=== PATIENT | female | born 1960 | race Two or more races ===

== ENCOUNTER 2017-02-16 09:31 | Inpatient (IN) | payer BC ==
[~2017-02-16] VITALS: Ht 157.5 cm; Wt 70.8 kg
[~2017-02-16 09:31] MED LIST: ALOG1TAB2 PO; ATOR10TA PO; LISI2.5T47 PO; METF-370 PO
[2017-02-16 10:17] LABS: Basophils # (auto) 0 uL; Basophils % (auto) 0.1 % (0.0-2.0); Eosinophils # (auto) 0.1 uL; Eosinophils % (auto) 0.9 % (0.0-7.0); Hemoglobin 13.4 g/dL (12.2-16.2); Lymphocytes # (auto) 1.6 uL; Lymphocytes % (auto) 23.8 % (10.0-50.0); Mean Corpuscular Hgb Conc. 33.5 g/dL (32.0-36.0); Mean Corpuscular Volume 86.6 fL (80.0-100.0); Mean Platelet Volume 7.3 fL (6.9-10.8); Monocytes # (auto) 0.5 uL; Monocytes % (auto) 6.9 % (0.0-12.0); Neutrophils # (auto) 4.5 uL; Neutrophils % (auto) 68.3 % (37.0-80.0); Nucleated Red Blood Cells % 0.1 %; Platelet Count (auto) 270 10^3/uL (140-450); Red Cell Distribution Width 14.1 % (11.8-14.3); White Blood Cell 6.5 10^3/uL (4.4-10.8)
[2017-02-16 10:31] LABS: Albumin 3.6 g/dL (3.4-5.0); Alkaline Phosphatase 78 U/L (45-117); Anion Gap 8 (5-15); Aspartate Aminotransferase 18 U/L (15-37); BUN/Creatinine Ratio 24.4; Bilirubin, Total 0.5 mg/dL (0.2-1.0); Blood Urea Nitrogen 19 mg/dL (7-18); Calcium 8.7 mg/dL (8.5-10.1); Carbon Dioxide 24 mmol/L (21-32); Chloride 108 mmol/L (98-107); GFR African American 99 mL/min; GFR Non-African American 82 mL/min; Glucose 197 mg/dL (74-106); Magnesium 2.1 mg/dL (1.6-2.6); Potassium 3.6 mmol/L (3.5-5.1); Sodium 140 mmol/L (136-145); Total Protein 7.3 g/dL (6.4-8.2)
[2017-02-16] MEDS ORDERED: LORazepam 2MG/ML-1ML VIAL IV ONE (10:45)
[2017-02-16] MEDS ORDERED: ASPirin 81 mg TAB PO ONE (11:30)
[2017-02-16] MEDS ORDERED: NITROGLYCERIN 0.4 MG SL TAB SL ONE (11:30)
[2017-02-16] MEDS ORDERED: HYDROcodone-ACET 5/325MG TAB PO PRN (12:00)
[2017-02-16] MEDS ORDERED: ONDANSETRON HCL 4 MG/2 ML VIAL IV PRN (12:00)
[2017-02-16] MEDS ORDERED: MORPHINE SULF INJ 2 MG/ML SYRINGE 1ML IV PRN ×2 (12:00)
[2017-02-16] MEDS ORDERED: NITROGLYCERIN 0.4 MG SL TAB SL PRN (12:00)
[2017-02-16] MEDS ORDERED: DEXTROSE (50%) 50ML SYRG IV PRN (12:00)
[2017-02-16 12:04] VITALS: BP 118/71
[2017-02-16 12:22] LABS: Cholesterol 153 mg/dL (< 200); HDL Cholesterol 53 mg/dL (40-59); LDL Cholesterol 101 mg/dL (< 100); Triglycerides 59 mg/dL (< 150)
[2017-02-16] MEDS ORDERED: ACCU-CHEK COMFORT CURVE STRIP VI SCH (17:00)
[2017-02-16] MEDS ORDERED: InsuLIN REG 1unit/0.01ml Soln (100units/ml) SC SCH (17:00)
[2017-02-16] MEDS ORDERED: ATORVASTATIN 20 MG TAB PO SCH (22:00)
[2017-02-16] MEDS ORDERED: METOPROLOL TARTRATE 25 MG TAB PO SCH (22:00)
[2017-02-17] MEDS ORDERED: ASPirin 81 mg TAB PO SCH (10:00)
[2017-02-17] MEDS ORDERED: ENALAPRIL MALEATE 2.5 MG TAB PO SCH (10:00)
== END 2017-02-16 13:25 | disposition home or self-care (01) | DRG 313 ==
LOC: ER 09:31 → TELE 09:32
PROVIDERS: ADMIT Internal Medicine; ATTEND Internal Medicine
DX: R07.89 Other chest pain (principal); E11.65 Type 2 diabetes mellitus with hyperglycemia; I10 Essential (primary) hypertension; I48.0 Paroxysmal atrial fibrillation; E78.5 Hyperlipidemia, unspecified; E78.00 Pure hypercholesterolemia, unspecified; K44.9 Diaphragmatic hernia without obstruction or gangrene; Z79.84 Long term (current) use of oral hypoglycemic drugs; N64.4 Mastodynia; Z79.899 Other long term (current) drug therapy; Z82.49 Family history of ischemic heart disease and other diseases of the circulatory system; Z83.3 Family history of diabetes mellitus; Z80.59 Family history of malignant neoplasm of other urinary tract organ
CPT/HCPCS: 36415; 71010; 80053; 80061; 83036; 83735; 84484; 85025; 85379; 93005; 96374

== ENCOUNTER 2024-11-16 01:15 | Inpatient (IN) | payer BC, OTHER ==
[~2024-11-16] VITALS: Ht 157.5 cm; Wt 68.6 kg
--- NOTE | 2024-11-16 01:37 | ECG ---
[facility] Test Date: 2024-11-16 Test Time: 01:19:26 Pat Name: LICO TRAN Department: ED Room: [address] [place] [address] Gender: F Legal Editor: BETTY : 1960 Requested By: CHANG TOVAR Order Number: [id number] Reading MD: Sky Kasper Measurements Intervals [place] Rate: 122 P: 0 [place]: 0 QRS: 46 QRSD: 124 T: -21 QT: 338 QTc: 482 Interpretive Statements Atrial fibrillation Nonspecific intraventricular conduction delay Repol abnrm suggests ischemia, diffuse leads ST depression V1-V3, suggest recording posterior leads Baseline wander in lead(s) V6 Electronically Signed On 11-18-2024 9:52:23 PDT by Sky Kasper Please click the below link to view image of tracing.
[2024-11-16 01:50] LABS: Hematocrit 42.5 % (36.0-46.0); Hemoglobin 14.3 g/dL (12.2-16.2); Mean Corpuscular Hemoglobin 28.9 pg (28.0-32.0); Mean Corpuscular Volume 85.9 fL (80.0-100.0); Nucleated Red Blood Cells % 0.0 %
[2024-11-16 01:53] LABS: Urine Protein, UAD Negative (Negative)
[2024-11-16] MEDS: SODIUM CHLORIDE 0.9% 1,000 ML IV ONE (01:55)
[2024-11-16 02:01] LABS: Anion Gap 15 (5-15); Chloride 105 mmol/L (98-107); Potassium 3.5 mmol/L (3.5-5.1); Sodium 140 mmol/L (136-145)
[2024-11-16 02:02] VITALS: PULSE 117; RESP 14; O2SAT 98
[2024-11-16 02:02] LABS: Calcium 9.9 mg/dL (8.7-10.4)
[2024-11-16 02:07] LABS: BUN/Creatinine Ratio 19.8 (10.0-20.0); Blood Urea Nitrogen 18 mg/dL (9-23)
[2024-11-16 02:14] LABS: Carbon Dioxide 20 mmol/L (20-31); Glucose 148 mg/dL (74-106)
--- NOTE | 2024-11-16 02:21 | ED.PDOC ---
History of Present Illness HPI Comments 64 y/o Honduran speaking F presents with c/o nonradiating, left sided chest pain. Patient reports on pain, suddenly, beginning, last night, while sleeping, at around 2300. Pain is pressure-like in quality. Denies any shortness of breath, nausea, vomiting, fever, chills, or further associated symptoms. Significant history of Paroxysmal AFib, DM, HLD, and HTN. Chief Complaint: Chest Pain Time Seen by MD: 01:10 Primary Care Provider: DINAH AT [facility] Reviewed Notes: Nurses Notes, Medications, Allergies Allergies: Coded Allergies: NO KNOWN ALLERGIES (Unverified , 03/06/16) Home Meds Reported Medications Metformin Hydrochloride (Metformin Hcl) 500 Mg Tab, 500 MG PO DAILY, TAB 03/06/16 Alogliptin Benzoate (Alogliptin) 25 Mg Tab, 25 MG PO DAILY, TAB 03/06/16 Atorvastatin Calcium (Lipitor) 10 Mg Tab, 10 MG PO DAILY, TAB 03/06/16 Lisinopril (Lisinopril) 2.5 Mg Tab, 5 MG PO DAILY, TAB 03/06/16 Information Source: Patient Mode of Arrival: Ambulatory Severity: Moderate Timing: Hours Duration: Since onset Prehospital treatment: None Past Medical History PAST MEDICAL HISTORY: AFIB (Paroxysmal - on Eliquis ), DM, High Lipids, HTN Surgical History: Denies all surgeries ROAD MAKER History: No Pertinent ROAD MAKER History Family History Family History: Unobtainable Social History Smoker: Non-Smoker Alcohol: Denies ETOH Use Drugs: Denies Drug Use Lives In: Home All Other Systems: Reviewed and Negative Physical Exam General Appearance: No Apparent Distress, Normal HEENT: Normal ENT Inspection, Pharynx Normal, TMs Normal Neck: Full Range of Motion, Non-Tender, Normal, Normal Inspection Respiratory: Chest Non-Tender, Lungs Clear, No Accessory Muscle Use, No Respiratory Distress, Normal Breath Sounds Cardiovascular: No Edema, No JVD, No Murmur, No Gallop, Normal Peripheral Pulses, Regular Rate/Rhythm Breast Exam: Deferred Gastrointestinal: No Organomegaly, Non Tender, No Pulsatile Mass, Normal Bowel Sounds, Soft Genitalia: Deferred Pelvic: Deferred Rectal: Deferred Extremities: No calf tenderness, Normal capillary refill, Normal inspection, Normal range of motion, Non-tender, No pedal edema Musculoskeletal : Apperance: Normal Neurologic: Alert, dancing teacher II-XII nml as Tested, No Motor Deficits, Normal Affect, Normal Mood, No Sensory Deficits Cerebellar Function: Normal Reflexes: Normal Skin: Dry, Normal Color, Warm Lymphatic: No Adenopathy Was a procedure done? Was a procedure done?: No EKG EKG : Pulse Rate (adult): 122 [place]: Normal Cardiac Rhythm: Afib Block: None Hypertrophy: None ST: Normal Differential Dx Considerations may include: NH, PE, ACS, URI, PNA, angina, anxiety, costochondritis, pericarditis, viral syndrome, gastritis, among others X-Ray, Labs, Meds, VS Vital Signs Date Time Temp Pulse Resp B/P (MAP) Pulse Ox O2 Delivery O2 Flow Rate FiO2 11/16/24 02:22 117 11/16/24 02:21 122 11/16/24 02:02 117 14 98 Room Air* 0 21 11/16/24 02:02 98.4 117 14 129/84 (99) 98 98.4 11/16/24 01:25 97.5 136 18 107/67 (80) 95 97.5 11/16/24 01:19 122 Lab Test 11/16/24 02:11 11/16/24 01:38 11/16/24 01:18 Range/Units Troponin I High Sensitivity 5 3 L </=34 ng/L Urine Color Colorless Yellow Urine Clarity Clear Clear Urine pH 7.5 5.0-9.0 Urine Specific [place] 1.004 1.001-1.035 Urine Protein Negative Negative Urine Ketones Negative Negative Urine Blood Negative Negative /uL Urine Nitrite Negative Negative Urine Bilirubin Negative Negative Urine Urobilinogen Normal Negative mg/dL Urine Leukocyte Esterase Negative Negative /uL Urine RBC 1 0 - 4 /hpf Urine Microscopic WBC < 1 0-5 /HPF Urine Squamous Epithelial Cells None seen <5 /hpf Urine Bacteria None seen None Seen /hpf Urine Glucose 3+ H Normal mg/dL White Blood Count 7.6 4.4-10.8 10^3/uL Red Blood Count 4.95 4.0-5.20 10^6/uL Hemoglobin 14.3 12.2-16.2 g/dL Hematocrit 42.5 36.0-46.0 % Mean Corpuscular Volume 85.9 80.0-100.0 fL Mean Corpuscular Hemoglobin 28.9 28.0-32.0 pg Mean Corpuscular Hemoglobin Concent 33.7 32.0-36.0 g/dL Red Cell Distribution Width 13.9 11.8-14.3 % Platelet Count 267 140-450 10^3/uL Mean Platelet Volume 8.0 6.9-10.8 fL Neutrophils (%) (Auto) 45.6 37.0-80.0 % Lymphocytes (%) (Auto) 45.0 10.0-50.0 % Monocytes (%) (Auto) 8.0 0.0-12.0 % Eosinophils (%) (Auto) 1.1 0.0-7.0 % Basophils (%) (Auto) 0.3 0.0-2.0 % Neutrophils # (Auto) 3.5 1.6-8.6 10 ^3/uL Lymphocytes # (Auto) 3.4 0.4-5.4 10 ^3/uL Monocytes # (Auto) 0.6 0-1.3 10 ^3/uL Eosinophils # (Auto) 0.1 0-0.8 10 ^3/uL Basophils # (Auto) 0 0-0.2 10 ^3/uL Nucleated Red Blood Cells 0.0 % Sodium Level 140 136-145 mmol/L Potassium Level 3.5 3.5-5.1 mmol/L Chloride Level 105 98-107 mmol/L Carbon Dioxide Level 20 20-31 mmol/L Anion Gap 15 5-15 Blood Urea Nitrogen 18 9-23 mg/dL Creatinine 0.91 0.550-1.02 mg/dL Glomerular Filtration Rate Calc 71 >90 mL/min BUN/Creatinine Ratio 19.8 10.0-20.0 Serum Glucose 148 H 74-106 mg/dL Calcium Level 9.9 8.7-10.4 mg/dL Current Medications Medications (Trade) Dose Ordered Sig/Halina Route Start Time Stop Time Status Last Admin Sodium Chloride 1,000 ml @ 1,000 mls/hr Q1H ONCE IV 11/16/24 01:45 11/16/24 02:44 DC 11/16/24 01:55 Time of 1ST Reevaluation: 03:37 Reevaluation 1ST: Improved Patient Education/Counseling: Diagnosis, Treatment Family Education/Counseling: No Family Present Additional Information Previous visits reviewed: March 06, 2016 and February 16, 2017 encounter for chest pain, new onset AFib, and chest pain, respectively. The following tests were ordered, and results were reviewed by me: UA, CBC, BMP, EKG, troponin Additional Information was gathered from interviewing the following independent historians: N/A I reviewed and agreed with the following test results read by other providers: N/A I discussed treatment and results with medical personnel and: patient SEPSIS Sepsis Screen Date sepsis recognized/suspect: Nov 16, 2024 Time Sepsis recognized/suspect: 116 Recent Procedure: No On Antibiotic Therapy: No Respiratory Rate >20: No Heart Rate >90: Yes Temp<36 C (96.8 F) or >38.3 C: No SBP <90 or MAP <65 mmHG: No New Acute Mental Status Change: No Is the patient on CPAP, BIPAP,: No Physician Orders Troponin-I Hs (11/16/24 04:16) Electrocardigram (11/16/24 02:16) Electrocardigram (11/16/24 04:16) Chest Portable (11/16/24 02:42) Amiodarone 150 Mg Bolus (11/16/24 03:45) Amiodarone Drip 1 Mg/Min X 6hr (11/16/24 03:45) Amiodarone Drip 0.5 Mg/Min (11/16/24 09:45) Vital Signs Date Time Temp Pulse Resp B/P (MAP) Pulse Ox O2 Delivery O2 Flow Rate FiO2 11/16/24 02:22 117 11/16/24 02:21 122 11/16/24 02:02 117 14 98 Room Air* 0 21 11/16/24 02:02 98.4 117 14 129/84 (99) 98 98.4 11/16/24 01:25 97.5 136 18 107/67 (80) 95 97.5 11/16/24 01:19 122 Laboratory Tests Test 11/16/24 01:18 White Blood Count 7.6 10^3/uL (4.4-10.8) Medications Medications Dose Ordered Sig/Halina Route Start Time Stop Time Status Last Admin Dose Admin Sodium Chloride 1,000 ml @ 1,000 mls/hr Q1H ONCE IV 11/16/24 01:45 11/16/24 02:44 DC 11/16/24 01:55 Departure 1 Departure Time of Disposition: 03:37 (Patient presented with chest pain that was concerning for possible STEMI, ACS, PE, Pneumonia, Muscle Strain, COPD, Dissection. Data: 1. I ordered and reviewed the result of at least 3 labs including a CBC, BMP, and Troponin. 2. I independently interpreted the following tests: EKG which shows AFib with RVR and Chest X-ray which shows benign chest.Risk:This patient has a high risk of morbidity due to further diagnostic testing or treatment and may suffer from an acute cardiac or respiratory disorder. Workup reveals AFib with RVR and patient should be admitted for further workup and possible expert consultation. ) Impression: Primary Impression: Atrial fibrillation with RVR Additional Impression: Acute chest pain Disposition: ADMITTED INPATIENT Admit to: Med Surg Condition: Serious Critical Care Note Critical Care Time?: Yes Critical care comment: Acute chest pain Authorized and Performed by: Chang Kline MD Total critical care time: Approximately 38 minutes Due to a high probability of clinically significant, life threatening deterioration, the patient required my highest level of preparedness to intervene emergently and I personally spent this critical care time directly and personally managing the patient. This critical care time included obtaining a history; examining the patient; pulse oximetry; ordering and review of studies; arranging urgent treatment with development of a management plan; evaluation of patient's response to treatment; frequent reassessment; and, discussions with other providers. This critical care time was performed to assess and manage the high probability of imminent, life-threatening deterioration that could result in multi-organ failure. It was exclusive of separately billable procedures and treating other patients and teaching time. Please see my other sections and the rest of the note for further information on patient assessment and treatment. Stability Stability form required: No Heart Score Heart Score: Heart Score Response (Comments) Value History Moderate Suspicious 1 EKG Repolarization Disturb 1 Age 45-64 1 Risk Factors >3 or Hx ASHD 2 Troponin Normal limit 0 Total 5 I personally scribed for CHANG KLINE MD ([email or web address]) on 11/16/24 at 02:21. Electronically submitted by Ace Keating ([email or web address]). CHANG KLINE MD Nov 16, 2024 02:21
--- NOTE | 2024-11-16 03:11 | DVH ---
CHEST RADIOGRAPH Indication: palpitations Technique: Single frontal view of the chest was obtained COMPARISON: None FINDINGS: Lines and Tubes: None Lungs: Clear Pleura: No effusion. No pneumothorax. Cardiomediastinal contours: Unremarkable. Atherosclerotic vascular calcifications. Bones: Unremarkable IMPRESSION: 1. No acute disease.
--- NOTE | 2024-11-16 04:42 | DVHHP2 ---
History of Present Illness Reason for Visit: Palpitations History of Present Illness 64-year-old female presents for evaluation of palpitations. Patient endorses a one day history of left-sided chest pressure with associated palpitations. She also reports mild shortness for breath and dizziness. Currently denies any symptoms. Patient was noted to be in AFib with RVR and was placed on amnio drip on arrival. Currently rate is controlled in the 70s. Past Medical History AFib, diabetes mellitus, hypertension, dyslipidemia Past Surgical History Denies Family History Noncontributory Smoke: No ALCOHOL: none Drugs: None Lives: with Family Review of Systems Review of Systems Review of systems are currently negative otherwise addressed in HPI. Allergies: Coded Allergies: NO KNOWN ALLERGIES (Unverified , 03/06/16) Exam Vital Signs Vital Signs Date Time Temp Pulse Resp B/P (MAP) Pulse Ox O2 Delivery O2 Flow Rate FiO2 11/16/24 04:11 71 11/16/24 02:02 14 98 Room Air* 0 21 11/16/24 02:02 98.4 129/84 (99) 98.4 Exam Gen: 64-year-old female in no apparent distress. Skin: Warm, dry, normal color and texture, no rash. HEENT: Normocephalic atraumatic, mucous membranes moist and pink. Neck: Cervical and supraclavicular nodes normal without enlargement, trachea is midline, thyroid gland is normal without masses. Pulmonary: Clear to auscultation and percussion bilaterally. Cardiac: Regular rate and rhythm. No murmur Abdomen: Soft, nontender, nondistended, bowel sounds present all 4 quadrants, no guarding, no rigidity, no organomegaly. Extremities: No cyanosis, clubbing, no edema Neuro: Cranial nerves II through XII grossly intact, normal affect and speech, n o focal motor deficits. Labs/Xrays ORDERING PHYSICIAN: CHANG TOVAR MD PROCEDURE(s): CXRP - CHEST PORTABLE REASON: palpitations ORDER NUMBER(s): [id number], ACCESSION NUMBER(s): [id number] CHEST RADIOGRAPH Indication: palpitations Technique: Single frontal view of the chest was obtained COMPARISON: None FINDINGS: Lines and Tubes: None Lungs: Clear Pleura: No effusion. No pneumothorax. Cardiomediastinal contours: Unremarkable. Atherosclerotic vascular calcifications. Bones: Unremarkable IMPRESSION: 1. No acute disease. Labs Test 11/16/24 04:15 11/16/24 01:38 11/16/24 01:18 Range/Units Urine Color Colorless Yellow Urine Clarity Clear Clear Urine pH 7.5 5.0-9.0 Urine Specific [place] 1.004 1.001-1.035 Urine Protein Negative Negative Urine Ketones Negative Negative Urine Blood Negative Negative /uL Urine Nitrite Negative Negative Urine Bilirubin Negative Negative Urine Urobilinogen Normal Negative mg/dL Urine Leukocyte Esterase Negative Negative /uL Urine RBC 1 0 - 4 /hpf Urine Microscopic WBC < 1 0-5 /HPF Urine Squamous Epithelial Cells None seen <5 /hpf Urine Bacteria None seen None Seen /hpf Urine Glucose 3+ H Normal mg/dL White Blood Count 7.6 4.4-10.8 10^3/uL Red Blood Count 4.95 4.0-5.20 10^6/uL Hemoglobin 14.3 12.2-16.2 g/dL Hematocrit 42.5 36.0-46.0 % Mean Corpuscular Volume 85.9 80.0-100.0 fL Mean Corpuscular Hemoglobin 28.9 28.0-32.0 pg Mean Corpuscular Hemoglobin Concent 33.7 32.0-36.0 g/dL Red Cell Distribution Width 13.9 11.8-14.3 % Platelet Count 267 140-450 10^3/uL Mean Platelet Volume 8.0 6.9-10.8 fL Neutrophils (%) (Auto) 45.6 37.0-80.0 % Lymphocytes (%) (Auto) 45.0 10.0-50.0 % Monocytes (%) (Auto) 8.0 0.0-12.0 % Eosinophils (%) (Auto) 1.1 0.0-7.0 % Basophils (%) (Auto) 0.3 0.0-2.0 % Neutrophils # (Auto) 3.5 1.6-8.6 10 ^3/uL Lymphocytes # (Auto) 3.4 0.4-5.4 10 ^3/uL Monocytes # (Auto) 0.6 0-1.3 10 ^3/uL Eosinophils # (Auto) 0.1 0-0.8 10 ^3/uL Basophils # (Auto) 0 0-0.2 10 ^3/uL Nucleated Red Blood Cells 0.0 % Sodium Level 140 136-145 mmol/L Potassium Level 3.5 3.5-5.1 mmol/L Chloride Level 105 98-107 mmol/L Carbon Dioxide Level 20 20-31 mmol/L Anion Gap 15 5-15 Blood Urea Nitrogen 18 9-23 mg/dL Creatinine 0.91 0.550-1.02 mg/dL Glomerular Filtration Rate Calc 71 >90 mL/min BUN/Creatinine Ratio 19.8 10.0-20.0 Serum Glucose 148 H 74-106 mg/dL Calcium Level 9.9 8.7-10.4 mg/dL Assessment/Plan Assessment/Plan Assessment AFib with RVR Diabetes mellitus Hypertension Plan Admit the patient to telemetry to the hospitalist Continue amiodarone drip Cardiology consult Echocardiogram pending Resume home medications Continue treatment per orders. Plan discussed with: Patient My Orders Orders - JOHNNY MA Procedure Category Date Status Time * Cardiology Consult CONS 11/16/24 Transmitted 04:32 Apixaban (Eliquis) PHA 11/16/24 Logged 10:00 Levothyroxine Tablet PHA 11/16/24 Logged (Synthroid Tablet) 06:00 Metoprolol Tartrate PHA 11/16/24 Transmitted Tablet (Lopressor Ta 10:00 Atorvastatin (Lipitor) PHA 11/16/24 Transmitted 22:00 Consistent DIET 11/16/24 Transmitted Carb(Ccho)Diabetes Breakfast Thyroid Stimulating LAB 11/16/24 Transmitted Hormone 04:32 Lipid Panel LAB 11/16/24 Transmitted 04:32 Glucose Blood PHA 11/16/24 Transmitted (Accu-Chek Comfort 06:00 Mild Sliding Scale PHA 11/16/24 Transmitted Npo - Q6hr 06:00 Dextrose 50% Syringe PHA 11/16/24 Transmitted 04:45 Admit ADMIT 11/16/24 Transmitted 04:32 Ondansetron Hcl PHA 11/16/24 Transmitted (Zofran) 04:45 Cardiac DIET 11/16/24 Transmitted Diet-2gna,Lofat,Lochol Breakfast Echo 2d Mode Cardiac US 11/16/24 Transmitted DOP 04:32 Condition: Fair KYLE 11/16/24 Transmitted 04:32 Acetaminophen Tablet PHA 11/16/24 Transmitted (Tylenol Tablet) 04:45 Bedrest With Bathroom KYLE 11/16/24 Transmitted Privileg 04:32 Nitroglycerin PHA 11/16/24 Transmitted Sublingual (Ntrostat 04:45 Morphine Sulfate PHA 11/16/24 Transmitted Injection 04:45 Stat Ekg For Chest [facility] 11/16/24 Transmitted Pain 04:32 Notify Md Of Changes [facility] 11/16/24 Transmitted From Base 04:32 Surg Tech For [facility] 11/16/24 Transmitted 24 Hours 04:32 Emergency Dysrhythmia [facility] 11/16/24 Transmitted Protocol 04:32 Rhythm Strips Once [facility] 11/16/24 Transmitted Every Shift 04:32 Oxygen By Nasal RT 11/16/24 Transmitted Cannula 04:32 Basic Metabolic Panel LAB 11/17/24 Verified 04:00 Date of Service: Nov 16, 2024 Billing Provider: JOHNNY MA Common Visit Codes: [id number] INP/OBS CARE (HIGH) JOHNNY MA Nov 16, 2024 04:42
[2024-11-16] MEDS ORDERED: DEXTROSE (50%) 50ML SYRG IV PRN (04:45)
[2024-11-16] MEDS ORDERED: MORPHINE SULFATE INJ 2 MG/ml SYRG IV PRN (04:45)
[2024-11-16] MEDS ORDERED: ACETAMINOPHEN 325 MG TAB PO PRN (04:45)
[2024-11-16] MEDS ORDERED: NITROGLYCERIN 0.4 MG SL TAB SL PRN (04:45)
[2024-11-16] MEDS ORDERED: ONDANSETRON HCL 4 MG/2 ML VIAL IV PRN (04:45)
[2024-11-16 05:24] LABS: Triglycerides 91 mg/dL (< 150)
[2024-11-16 05:26] LABS: Cholesterol 127 mg/dL (< 200); HDL Cholesterol 41 mg/dL (40-59)
[2024-11-16] MEDS: AMIODARONE BOLUS KIT 100 ML IV ONE (05:34)
[2024-11-16] MEDS: AMIODARONE 360mg/200mL PREMIX 200 ML IV ONE (05:59)
[2024-11-16] MEDS: InsuLIN REG 1unit/0.01ml Soln (100units/ml) SC SCH (06:00)
[2024-11-16] MEDS: ACCU-CHEK COMFORT CURVE STRIP VI SCH (06:09)
--- NOTE | 2024-11-16 06:15 | ECG ---
[facility] Test Date: 2024-11-16 Test Time: 02:22:58 Pat Name: LICO TRAN Department: ED Room: [address] [place] [address] Gender: F Automation Test Developer: DC : 1960 Requested By: CHANG TOVAR Order Number: [id number] Reading MD: Sky Kasper Measurements Intervals [place] Rate: 117 P: 0 MT: 0 QRS: 39 QRSD: 84 T: 31 QT: 349 QTc: 487 Interpretive Statements Atrial fibrillation Low voltage, precordial leads Abnormal R-wave progression, early transition Borderline prolonged QT interval Electronically Signed On 11-18-2024 9:52:42 PDT by Sky Kasper Please click the below link to view image of tracing.
--- NOTE | 2024-11-16 06:15 | ECG ---
[facility] Test Date: 2024-11-16 Test Time: 04:11:51 Pat Name: LICO TRAN Department: ED Room: [address] [place] [address] Gender: F Power Checker: DC : 1960 Requested By: CHANG TOVAR Order Number: [id number] Reading MD: Sky Kasper Measurements Intervals [place] Rate: 71 P: 0 [place]: 0 QRS: 42 QRSD: 87 T: 31 QT: 398 QTc: 433 Interpretive Statements Atrial fibrillation Low voltage, precordial leads Abnormal R-wave progression, early transition Electronically Signed On 11-18-2024 9:54:17 PDT by Sky Kasper Please click the below link to view image of tracing.
[2024-11-16] MEDS: LEVOTHYROXINE SODIUM 88 MCG TAB PO SCH (06:19)
[2024-11-16] MEDS: APIXABAN 5 MG TAB PO SCH (09:35)
[2024-11-16] MEDS: METOPROLOL TARTRATE 25 MG TAB PO SCH (09:36)
[2024-11-16] MEDS: AMIODARONE 360mg/200mL PREMIX 200 ML IV SCH (09:37)
[2024-11-16] MEDS ORDERED: CLON0.1T PO (10:18)
[2024-11-16 12:08] VITALS: BP_SYST 68; BP_SYST 85; BP_DIAS 49; PULSE 68; RESP 17; TEMP 98; O2SAT 96
[2024-11-16 16:56] VITALS: BP 120/73; PULSE 51; RESP 17; TEMP 98.4; O2SAT 97
--- NOTE | 2024-11-16 17:34 | DVHSR ---
APPROVED REPORT EXAM: Two-dimensional and M-mode echocardiogram with Doppler and color Doppler. Blood Pressure: 101/67 mmHg INDICATION Atrial Fibrillation DIMENSIONS LVDd3.5 (3.8-5.7cm)LA (2D)3.1 (1.9-4.0cm)Aortic Root3.4 (2.0-3.7cm) LVDs2.6 (2.5-4.0cm)LA (MM) (1.9-4.0cm)Aortic Cusp Exc1.8 (1.5-2.0cm) EF (%) 55.0 (55-70%)Rt. Atrium3.5 (1.9-4.0cm)Asc. Aorta cm IVSd1.1 (0.7-1.1cm)RV (D) (1.8-2.4cm) PWd1.1 (0.7-1.1cm) Mitral Valve MitralMitral Stenosis E wave0.70m/sMV Mean GR.mmHg E/A ratio0.02D MVAcm2 Aortic Valve Aortic ValveAortic Stenosis V10.70m/Babatunde Mean GR.2mmHg V21.00m/Babatunde Peak GR.4mmHg LVOT Diameter2.0 (1.8-2.4cm)Doppler AVA2.20cm2 Pulmonic Valve V20.50m/s Other Information Quality : Rhythm : Atrial Fibrillation Conclusion Left ventricle: Mild concentric left ventricular hypertrophy was seen. LVEF was 55-60%. There was no gross wall motion abnormality. Right ventricle was normal-sized with normal systolic function. Mild left atrial enlargement was see n. Right atrium was normal-sized. Aortic valve was not well visualized. There was no aortic insufficiency/stenosis. There was trace m itral/tricuspid regurgitation. Pulmonary valve was not well visualized. As there was no good tricuspid regurgitation jet, right ventricular systolic pressure could not be es timated. There was no echocardiographic evidence for pulmonary hypertension. IVC was not well visualized. There was no pericardial effusion.
--- NOTE | 2024-11-16 17:47 | DVHINCON2 ---
Date of service: Nov 16, 2024 History of Present Illness HPI Patient is a 64-year-old female who presented to the hospital with chest discomfort/palpitation which started during sleep the night before presentation. She was found to have atrial fibrillation with RVR in emergency room and was started on amiodarone drip. Cardiology was involved for cardiac aspects of care. Patient comes to our office as outpatient and is known to have paroxysmal AFib and is on Eliquis as outpatient. Denies shortness of breath. Denies leg swellings. Is on metoprolol as outpatient also. Home Meds Reported Medications Clonidine Hydrochloride (Clonidine Hcl) 0.1 Mg Tab, 1 TAB PO Q6HP, #30 TAB 2 Refills 11/16/24 Metformin Hydrochloride (Metformin Hcl) 500 Mg Tab, 500 MG PO DAILY, TAB 03/06/16 Alogliptin Benzoate (Alogliptin) 25 Mg Tab, 25 MG PO DAILY, TAB 03/06/16 Atorvastatin Calcium (Lipitor) 10 Mg Tab, 10 MG PO DAILY, TAB 03/06/16 Lisinopril (Lisinopril) 2.5 Mg Tab, 5 MG PO DAILY, TAB 03/06/16 Past Medical History Others Past medical history includes hypertension, hyperlipidemia, diabetes mellitus and paroxysmal AFib (is on Eliquis as outpatient). Patient Family History: FH: uterine cancer G8 MOTHER Family history: Diabetes mellitus G8 BROTHER G8 SISTER Family history: Hypertension G8 FATHER Smoker: No Hx (Negative) Alocohol: None Lives with: With family Review of Systems All Other Systems 14 point review of system was performed. Relevant findings as per above and as per HPI. Otherwise negative. H&P Exam Vital Signs Vital Signs Date Time Temp Pulse Resp B/P (MAP) Pulse Ox O2 Delivery O2 Flow Rate FiO2 11/16/24 17:08 Room Air* 0 21 11/16/24 12:08 98.0 68 17 68/49 (55) 96 98.0 General Appeara: Well developed, Well nourished Head Exam: Normal inspection Eye Exam: bilateral eye PERRL Mouth: Normal Inspection Pulmonary/Respiratory: Lungs clear Cardiovascular/Chest: Normal inspection, Regular rate, Bradycardia Peripheral Pulses: 2+ carotid (R), 2+ carotid (L), 2+ femoral (R), 2+ femoral (L), 2+ dorsalis pedis (R), 2+ dorsalis pedis (L), 2+ Radial (R), 2+ Radial (L) Abdominal Exam: Normal bowel sounds, Soft Neuro/Mental St: Alert, Oriented Appearance: Appropriate appearance Eye contact/ Speech: Cooperative Labs/Xrays Labs Test 11/16/24 11:26 11/16/24 04:15 11/16/24 01:38 11/16/24 01:18 Range/Units POC Glucose 190 H 70-106 mg/dl Troponin I High Sensitivity 11 </=34 ng/L Triglycerides Level 91 < 150 mg/dL Cholesterol Level 127 < 200 mg/dL LDL Cholesterol 75 < 100 mg/dL HDL Cholesterol 41 40-59 mg/dL Thyroid Stimulating Hormone (TSH) 1.80 0.55-4.78 uIU/mL Urine Color Colorless Yellow Urine Clarity Clear Clear Urine pH 7.5 5.0-9.0 Urine Specific [place] 1.004 1.001-1.035 Urine Protein Negative Negative Urine Ketones Negative Negative Urine Blood Negative Negative /uL Urine Nitrite Negative Negative Urine Bilirubin Negative Negative Urine Urobilinogen Normal Negative mg/dL Urine Leukocyte Esterase Negative Negative /uL Urine RBC 1 0 - 4 /hpf Urine Microscopic WBC < 1 0-5 /HPF Urine Squamous Epithelial Cells None seen <5 /hpf Urine Bacteria None seen None Seen /hpf Urine Glucose 3+ H Normal mg/dL White Blood Count 7.6 4.4-10.8 10^3/uL Red Blood Count 4.95 4.0-5.20 10^6/uL Hemoglobin 14.3 12.2-16.2 g/dL Hematocrit 42.5 36.0-46.0 % Mean Corpuscular Volume 85.9 80.0-100.0 fL Mean Corpuscular Hemoglobin 28.9 28.0-32.0 pg Mean Corpuscular Hemoglobin Concent 33.7 32.0-36.0 g/dL Red Cell Distribution Width 13.9 11.8-14.3 % Platelet Count 267 140-450 10^3/uL Mean Platelet Volume 8.0 6.9-10.8 fL Neutrophils (%) (Auto) 45.6 37.0-80.0 % Lymphocytes (%) (Auto) 45.0 10.0-50.0 % Monocytes (%) (Auto) 8.0 0.0-12.0 % Eosinophils (%) (Auto) 1.1 0.0-7.0 % Basophils (%) (Auto) 0.3 0.0-2.0 % Neutrophils # (Auto) 3.5 1.6-8.6 10 ^3/uL Lymphocytes # (Auto) 3.4 0.4-5.4 10 ^3/uL Monocytes # (Auto) 0.6 0-1.3 10 ^3/uL Eosinophils # (Auto) 0.1 0-0.8 10 ^3/uL Basophils # (Auto) 0 0-0.2 10 ^3/uL Nucleated Red Blood Cells 0.0 % Sodium Level 140 136-145 mmol/L Potassium Level 3.5 3.5-5.1 mmol/L Chloride Level 105 98-107 mmol/L Carbon Dioxide Level 20 20-31 mmol/L Anion Gap 15 5-15 Blood Urea Nitrogen 18 9-23 mg/dL Creatinine 0.91 0.550-1.02 mg/dL Glomerular Filtration Rate Calc 71 >90 mL/min BUN/Creatinine Ratio 19.8 10.0-20.0 Serum Glucose 148 H 74-106 mg/dL Calcium Level 9.9 8.7-10.4 mg/dL Assessment/Plan Plan Patient is a 64-year-old female who presented to the hospital with chest discomfort/palpitation which started during sleep the night before presentation. She was found to have atrial fibrillation with RVR in emergency room and was started on amiodarone drip. Cardiology was involved for cardiac aspects of care. Patient comes to our office as outpatient and is known to have paroxysmal AFib and is on Eliquis as outpatient. Denies shortness of breath. Denies leg swellings. Is on metoprolol as outpatient also. Not in acute distress. At the time of evaluation, the patient is in sinus rhythm with bradycardia (in 40s), no JVD. No carotid bruit. No goiter. Lungs are clear to auscultation. Not using accessory muscles of breathing. Cardiac: Regular, no thrill. No gallop. Bradycardic. Abdomen is soft. There is no gross mass/hepatomegaly. Bowel sound is positive. Extremities do not reveal edema. Dorsalis pedis is 2+ bilateral. Past medical history includes hypertension, hyperlipidemia, diabetes mellitus and paroxysmal AFib (is on Eliquis as outpatient). Echocardiogram of 2016 revealed ejection fraction of 55%, mild TR and left atrial enlargement. Echocardiogram of January 11, 2024 (performed in the office) revealed borderline concentric left ventricular hypertrophy, ejection fraction of 65-70%, mild biatrial enlargement, mild MR/TR/PI and right ventricular systolic pressure 38 mm Hg. Nuclear stress test of September 09, 2020 (performed in [facility]) revealed normal perfusion and ejection fraction of 59%. Hemoglobin: 14.3 Creatinine: 0.91 Potassium: 3.5 Troponin (high sensitive): 3 - 5 - 11 TSH: 1.80 Chest x-ray revealed: IMPRESSION: 1. No acute disease. Ekg on arrival revealed atrial fibrillation with RVR Telemetry: Since arrival to tele floor, telemetry reveals sinus bradycardia Echocardiogram revealed: Left ventricle: Mild concentric left ventricular hypertrophy was seen. LVEF was 55-60%. There was no gross wall motion abnormality. Right ventricle was normal-sized with normal systolic function. Mild left atrial enlargement was seen. Right atrium was normal-sized. Aortic valve was not well visualized. There was no aortic insufficiency/stenosis. There was trace mitral/tricuspid regurgitation. Pulmonary valve was not well visualized. As there was no good tricuspid regurgitation jet, right ventricular systolic pressure could not be estimated. There was no echocardiographic evidence for pulmonary hypertension. IVC was not well visualized. There was no pericardial effusion. Patient is a 64-year-old female who presented with chest discomfort/palpitations which woke her up. She was found to have atrial fibrillation with RVR. Does have history of paroxysmal AFib and is on Eliquis as outpatient. Has not been on anti arrhythmic medications. CHADS-VASc score is considered elevated and long-term full anticoagulation is advised. Presentation is not in favor of acute coronary syndrome. Atrial fibrillation with RVR History of diabetes Hyperlipidemia Hypertension Paroxysmal AFib Cardiac suggestion for management: Manage on telemetry Follow-up electrolytes and kidney function tests and correct abnormalities Keep potassium above 4 and magnesium above 2 Continue IV amiodarone. Start oral amiodarone today Hold beta blockers (sinus bradycardia) Request for D-dimer, if abnormal request for CT angio of the lungs No indication for ischemic workup at this point Further evaluation and management depends on the above and clinical course Thank you for consultation. A total of 75 minutes was spent reviewing the patient record, examining the patient, making a diagnostic and therapeutic plan, discussing this plan with medical personnel, following up on diagnostic studies and following the patient for clinical stability excluding any and all procedures. At least 50% of this time was spent in direct, [id number] contact. Thank you for allowing me to participate in this patient's care. Further recommendations will depend on patient's clinical course. Please do not hesitate to contact me if you have any questions or concerns. This medical document was created using electronic medical record system with [employer] computerized dictation system. Although this document has been carefully reviewed, there may still be some phonetic and typographical errors. These areas are purely typographical due to the imperfection of the software programs, and do not reflect any compromise in the patient's medical care. Plan discussed with: Patient, Other (nurse) MARILYN REED MD Nov 16, 2024 17:47
[2024-11-16] MEDS: POTASSIUM CHL 20 Meq TABLET PO ONE (18:20)
[2024-11-16 19:17] VITALS: PULSE 105; RESP 69
[2024-11-16 20:00] VITALS: PULSE 48
[2024-11-16 21:00] VITALS: BP 118/69; PULSE 46; RESP 17; TEMP 97.3; O2SAT 97
[2024-11-16] MEDS: AMIODARONE HCL 200 MG TAB PO SCH (21:27)
[2024-11-16] MEDS: ATORVASTATIN 20 MG TAB PO SCH (21:27)
[2024-11-17 01:00] VITALS: BP 110/45; PULSE 45; RESP 18; TEMP 97.3; O2SAT 98
[2024-11-17] MEDS: AMIODARONE 360mg/200mL PREMIX 200 ML IV SCH (02:42)
[2024-11-17 05:00] VITALS: BP 125/77; PULSE 45; RESP 18; TEMP 97.4; O2SAT 98
[2024-11-17 05:50] LABS: Potassium 3.9 mmol/L (3.5-5.1); Sodium 141 mmol/L (136-145)
[2024-11-17 05:51] LABS: Anion Gap 5 (5-15); Calcium 9.3 mg/dL (8.7-10.4); Carbon Dioxide 26 mmol/L (20-31)
[2024-11-17 05:56] LABS: BUN/Creatinine Ratio 20.7 (10.0-20.0); Blood Urea Nitrogen 18 mg/dL (9-23)
[2024-11-17 06:07] LABS: Chloride 110 mmol/L (98-107); Glucose 73 mg/dL (74-106)
[2024-11-17 08:00] VITALS: PULSE 47
--- NOTE | 2024-11-17 08:11 | DVHPN2 ---
Progress Note - Dictate Date Seen: Nov 17, 2024 Medical Necessity Reason Pt with a Central, PICC or Fol: No vital signs Vital Sign Date Time Temp Pulse Resp B/P (MAP) Pulse Ox O2 Delivery O2 Flow Rate FiO2 11/17/24 05:00 97.4 45 18 125/77 (93) 98 97.4 11/16/24 20:00 Room Air* 0 21 Total Intake and Output 11/16/24 11/16/24 11/17/24 15:00 23:00 07:00 Intake Total 800 ml Balance 800 ml medications Current Medications Medications Dose Ordered Sig/Halina Route Start Time Stop Time Status Last Admin Dose Admin Apixaban 5 mg BID PO 11/16/24 10:00 11/16/24 21:27 5 MG Levothyroxine Sodium 88 mcg QAM@0600 PO 11/16/24 06:00 11/17/24 06:14 88 MCG Metoprolol Tartrate 25 mg BID PO 11/16/24 10:00 11/16/24 09:36 25 MG Atorvastatin Calcium 10 mg HS PO 11/16/24 22:00 11/16/24 21:27 10 MG Diagnostic Test (Pha) 1 strip Q6HR 11/16/24 06:00 11/17/24 05:52 1 STRIP Insulin Human Regular Q6HR SC 11/16/24 06:00 11/17/24 00:23 2 UNITS Dextrose 50 ml UD PRN IV 11/16/24 04:45 Ondansetron HCl 4 mg Q4HP PRN IV 11/16/24 04:45 Acetaminophen 650 mg Q6HP PRN PO 11/16/24 04:45 Nitroglycerin 0.4 mg Q5MINP PRN SL 11/16/24 04:45 Morphine Sulfate 2 mg Q30M PRN IV 11/16/24 04:45 Amiodarone HCl 200 mg Q12HR PO 11/16/24 22:00 Hold 11/16/24 21:27 200 MG laboratory and microbiology Laboratory Tests 11/17/24 05:11 11/16/24 01:18 Test 11/17/24 05:11 Range/Units Serum Glucose 73 L 74-106 mg/dL Assessment/Plan Patient is a 64-year-old female who presented to the hospital with chest discomfort/palpitation which started during sleep the night before presentation. She was found to have atrial fibrillation with RVR in emergency room and was started on amiodarone drip. Cardiology was involved for cardiac aspects of care. Patient comes to our office as outpatient and is known to have paroxysmal AFib and is on Eliquis as outpatient. Denies shortness of breath. Denies leg swellings. Is on metoprolol as outpatient also. Not in acute distress. At the time of evaluation, the patient is in sinus rhythm with bradycardia (in 40s), no JVD. No carotid bruit. No goiter. Lungs are clear to auscultation. Not using accessory muscles of breathing. Cardiac: Regular, no thrill. No gallop. Bradycardic. Abdomen is soft. There is no gross mass/hepatomegaly. Bowel sound is positive. Extremities do not reveal edema. Dorsalis pedis is 2+ bilateral. Past medical history includes hypertension, hyperlipidemia, diabetes mellitus and paroxysmal AFib (is on Eliquis as outpatient). Echocardiogram of 2016 revealed ejection fraction of 55%, mild TR and left atrial enlargement. Echocardiogram of January 11, 2024 (performed in the office) revealed borderline concentric left ventricular hypertrophy, ejection fraction of 65-70%, mild biatrial enlargement, mild MR/TR/PI and right ventricular systolic pressure 38 mm Hg. Nuclear stress test of September 09, 2020 (performed in [facility]) revealed normal perfusion and ejection fraction of 59%. Hemoglobin: 14.3 Creatinine: 0.91 - 0.87 Potassium: 3.5 - 3.9 Troponin (high sensitive): 3 - 5 - 11 TSH: 1.80 D-Dimer: 0.49 (wnl) Chest x-ray revealed: IMPRESSION: 1. No acute disease. Ekg on arrival revealed atrial fibrillation with RVR Telemetry: Since arrival to tele floor, telemetry reveals sinus bradycardia Echocardiogram revealed: Left ventricle: Mild concentric left ventricular hypertrophy was seen. LVEF was 55-60%. There was no gross wall motion abnormality. Right ventricle was normal-sized with normal systolic function. Mild left atrial enlargement was seen. Right atrium was normal-sized. Aortic valve was not well visualized. There was no aortic insufficiency/stenosis. There was trace mitral/tricuspid regurgitation. Pulmonary valve was not well visualized. As there was no good tricuspid regurgitation jet, right ventricular systolic pressure could not be estimated. There was no echocardiographic evidence for pulmonary hypertension. IVC was not well visualized. There was no pericardial effusion. Patient is a 64-year-old female who presented with chest discomfort/palpitations which woke her up. She was found to have atrial fibrillation with RVR. Does have history of paroxysmal AFib and is on Eliquis as outpatient. Has not been on anti arrhythmic medications. CHADS-VASc score is considered elevated and long-term full anticoagulation is advised. Presentation is not in favor of acute coronary syndrome. Atrial fibrillation with RVR History of diabetes Hyperlipidemia Hypertension Paroxysmal AFib Cardiac suggestion for management: Manage on telemetry Follow-up electrolytes and kidney function tests and correct abnormalities Keep potassium above 4 and magnesium above 2 Stop IV amiodarone. Oral amiodarone 200 HS (as outpatient may change to Multaq) Stop Metoprolol No indication for ischemic workup at this point Further evaluation and management depends on the above and clinical course Cardiac barba, can be followed as outpatient A total of 55 minutes was spent reviewing the patient record, examining the patient, making a diagnostic and therapeutic plan, discussing this plan with medical personnel, following up on diagnostic studies and following the patient for clinical stability excluding any and all procedures. At least 50% of this time was spent in direct, [id number] contact. Thank you for allowing me to participate in this patient's care. Further recommendations will depend on patient's clinical course. Please do not hesitate to contact me if you have any questions or concerns. This medical document was created using electronic medical record system with [employer] computerized dictation system. Although this document has been carefully reviewed, there may still be some phonetic and typographical errors. These areas are purely typographical due to the imperfection of the software programs, and do not reflect any compromise in the patient's medical care. Plan discussed with: Patient, Other (nurse) MARILYN REED MD Nov 17, 2024 08:11
[2024-11-17 08:39] VITALS: BP 102/63; PULSE 50; RESP 15; TEMP 97; O2SAT 97
[2024-11-17 12:17] VITALS: BP 105/42; PULSE 51; RESP 16; TEMP 97.2; O2SAT 97
--- NOTE | 2024-11-17 12:53 | DVHPN2 ---
Reviewed: Care Plan, H&P, Labs, Medications, Previous Orders, Radiology Changes from previous H/P or p: No Changes Objective Vitals Vital Signs Date Time Temp Pulse Resp B/P (MAP) Pulse Ox O2 Delivery O2 Flow Rate FiO2 11/17/24 12:17 97.2 51 16 105/42 (63) 97 97.2 11/16/24 20:00 Room Air* 0 21 Intake/Output Intake and Output 11/17/24 07:00 Intake Total 800 ml Balance 800 ml Intake Oral 800 ml # Voids 2 # Bowel Movements 1 Medications Current Medications Medications Dose Ordered Sig/Halina Route Start Time Stop Time Status Last Admin Dose Admin Apixaban 5 mg BID PO 11/16/24 10:00 11/17/24 09:39 5 MG Levothyroxine Sodium 88 mcg QAM@0600 PO 11/16/24 06:00 11/17/24 06:14 88 MCG Atorvastatin Calcium 10 mg HS PO 11/16/24 22:00 11/16/24 21:27 10 MG Diagnostic Test (Pha) 1 strip Q6HR 11/16/24 06:00 11/17/24 12:07 1 STRIP Insulin Human Regular Q6HR SC 11/16/24 06:00 11/17/24 00:23 2 UNITS Dextrose 50 ml UD PRN IV 11/16/24 04:45 Ondansetron HCl 4 mg Q4HP PRN IV 11/16/24 04:45 Acetaminophen 650 mg Q6HP PRN PO 11/16/24 04:45 Nitroglycerin 0.4 mg Q5MINP PRN SL 11/16/24 04:45 Morphine Sulfate 2 mg Q30M PRN IV 11/16/24 04:45 Amiodarone HCl 200 mg Q12HR PO 11/16/24 22:00 11/17/24 09:39 200 MG Laboratory Results Laboratory Tests 11/16/24 01:18 11/17/24 05:11 Chemistry Test 11/17/24 05:11 Calcium Level 9.3 mg/dL (8.7-10.4) Coagulation Test 11/16/24 19:39 D-Dimer, Quantitative 0.49 mg/L FEU (0.0-0.49) Urinalysis Test 11/16/24 01:38 Urine Color Colorless (Yellow) Urine Clarity Clear (Clear) Urine pH 7.5 (5.0-9.0) Urine Specific [place] 1.004 (1.001-1.035) Urine Protein Negative (Negative) Urine Ketones Negative (Negative) Urine Blood Negative /uL (Negative) Urine Nitrite Negative (Negative) Urine Bilirubin Negative (Negative) Urine Urobilinogen Normal mg/dL (Negative) Urine Leukocyte Esterase Negative /uL (Negative) Urine RBC 1 /hpf (0 - 4) Urine Microscopic WBC < 1 /HPF (0-5) Urine Squamous Epithelial Cells None seen /hpf (<5) Urine Bacteria None seen /hpf (None Seen) Urine Glucose 3+ mg/dL (Normal) H Labs and/or images reviewed: Labs reviewed by me, Image(s) reviewed by me Assessment/Plan Assessment/Plan Atrial fibrillation with RVR amiodarone tablets, Multaq as an outpatient cardiology consult by Dr. Crook appreciated History of diabetes Hyperlipidemia: Lipitor Hypothyroidism: Synthroid Hypertension History of Paroxysmal AFib on Eliquis, not on any antiarrhythmic drugs Dr. Crook cleared for discharge Plan discussed with: Patient Date of Service: Nov 17, 2024 Billing Provider: ROCIO COTA MD Common Visit Codes: [id number] INP/OBS CARE(HIGH) ROCIO COTA MD Nov 17, 2024 12:53
[2024-11-17] MEDS ORDERED: AMIO200T33 PO (12:55)
--- NOTE | 2024-11-17 12:58 | DVHDS2 ---
Discharge Summary Date of Admission Nov 16, 2024 at 04:32 Date of Discharge: Nov 17, 2024 Admitting Diagnosis Chest pain and palpitations Wounds: None Labs/Diagnostic Data: Laboratory Results Test 11/17/24 05:11 11/16/24 19:39 11/16/24 17:49 11/16/24 04:15 Sodium Level 141 mmol/L (136-145) Potassium Level 3.9 mmol/L (3.5-5.1) Chloride Level 110 mmol/L (98-107) Carbon Dioxide Level 26 mmol/L (20-31) Anion Gap 5 (5-15) Blood Urea Nitrogen 18 mg/dL (9-23) Creatinine 0.87 mg/dL (0.550-1.02) Glomerular Filtration Rate Calc 75 mL/min (>90) BUN/Creatinine Ratio 20.7 (10.0-20.0) Serum Glucose 73 mg/dL (74-106) Calcium Level 9.3 mg/dL (8.7-10.4) D-Dimer, Quantitative 0.49 mg/L FEU (0.0-0.49) POC Glucose 135 mg/dl (70-106) Troponin I High Sensitivity 11 ng/L (</=34) Triglycerides Level 91 mg/dL (< 150) Cholesterol Level 127 mg/dL (< 200) LDL Cholesterol 75 mg/dL (< 100) HDL Cholesterol 41 mg/dL (40-59) Thyroid Stimulating Hormone (TSH) 1.80 uIU/mL (0.55-4.78) Test 11/16/24 01:38 11/16/24 01:18 Urine Color Colorless (Yellow) Urine Clarity Clear (Clear) Urine pH 7.5 (5.0-9.0) Urine Specific [place] 1.004 (1.001-1.035) Urine Protein Negative (Negative) Urine Ketones Negative (Negative) Urine Blood Negative /uL (Negative) Urine Nitrite Negative (Negative) Urine Bilirubin Negative (Negative) Urine Urobilinogen Normal mg/dL (Negative) Urine Leukocyte Esterase Negative /uL (Negative) Urine RBC 1 /hpf (0 - 4) Urine Microscopic WBC < 1 /HPF (0-5) Urine Squamous Epithelial Cells None seen /hpf (<5) Urine Bacteria None seen /hpf (None Seen) Urine Glucose 3+ mg/dL (Normal) White Blood Count 7.6 10^3/uL (4.4-10.8) Red Blood Count 4.95 10^6/uL (4.0-5.20) Hemoglobin 14.3 g/dL (12.2-16.2) Hematocrit 42.5 % (36.0-46.0) Mean Corpuscular Volume 85.9 fL (80.0-100.0) Mean Corpuscular Hemoglobin 28.9 pg (28.0-32.0) Mean Corpuscular Hemoglobin Concent 33.7 g/dL (32.0-36.0) Red Cell Distribution Width 13.9 % (11.8-14.3) Platelet Count 267 10^3/uL (140-450) Mean Platelet Volume 8.0 fL (6.9-10.8) Neutrophils (%) (Auto) 45.6 % (37.0-80.0) Lymphocytes (%) (Auto) 45.0 % (10.0-50.0) Monocytes (%) (Auto) 8.0 % (0.0-12.0) Eosinophils (%) (Auto) 1.1 % (0.0-7.0) Basophils (%) (Auto) 0.3 % (0.0-2.0) Neutrophils # (Auto) 3.5 10 ^3/uL (1.6-8.6) Lymphocytes # (Auto) 3.4 10 ^3/uL (0.4-5.4) Monocytes # (Auto) 0.6 10 ^3/uL (0-1.3) Eosinophils # (Auto) 0.1 10 ^3/uL (0-0.8) Basophils # (Auto) 0 10 ^3/uL (0-0.2) Nucleated Red Blood Cells 0.0 % Other Laboratory Tests 11/17/24 05:11 11/16/24 01:18 Brief Hx & Hospital Course: 64-year-old female with a history of diabetes hypertension hypercholesterolemia hypothyroidism paroxysmal AFib on Eliquis not on any antiarrhythmic drug came in for chest pain and palpitations. Troponin negative seen by Cardiology Dr. Crook placed on amiodarone 200 mg p.o. b.i.d. and cleared for discharge. Patient is asymptomatic at the time of discharge prescription transmitted to the pharmacy for amiodarone Consults/Reason for consult Cardiology Dr. Crook Operations or Procedures None Condition at Discharge: Fair Final Diagnosis/Problems List Atrial fibrillation with RVR amiodarone tablets, Multaq as an outpatient cardiology consult by Dr. Crook appreciated History of diabetes Hyperlipidemia: Lipitor Hypothyroidism: Synthroid Hypertension History of Paroxysmal AFib on Eliquis, not on any antiarrhythmic drugs Discharge Disposition: Home Discharge Instruct/Medications Diet: Consistent carbohydrate, Cardiac 2g Na,low cholest Activity: Light activity Follow Up/Referral: Continue All your home medications including Eliquis Follow up with Dr. Crook in 2 weeks Medications: Amiodarone 200 mg p.o. b.i.d. number 60 Transmitted to pharmacy Scheduled Alogliptin Benzoate (Alogliptin), 25 MG PO DAILY, (Reported) Amiodarone Hcl (Amiodarone Hcl), 200 MG PO BID Atorvastatin Calcium (Lipitor), 10 MG PO DAILY, (Reported) Clonidine Hydrochloride (Clonidine Hcl), 1 TAB PO Q6HP, (Reported) Lisinopril (Lisinopril), 5 MG PO DAILY, (Reported) Metformin Hydrochloride (Metformin Hcl), 500 MG PO DAILY, (Reported) 39 (Time taken for discharge summary 39 minutes) Discharge Statement: "Patient was advised to return to the ER or call 911 if any headaches, dizziness, shortness of breath, chest pain, abdominal pain, bleeding, fevers, or worsening of medical condition. Patient was counseled about treatment plan, medications, possible side effects, patientverbalized understanding. All questions were answered to the best of my ability. This discharge took greater then 30 minutes in planning, reviewing documentation, counseling the patient, and discussing with other team members." ASSESSMENT ASSESSMENT Hospital Course Improved Assessment Atrial fibrillation with RVR amiodarone tablets, Multaq as an outpatient cardiology consult by Dr. Crook appreciated History of diabetes Hyperlipidemia: Lipitor Hypothyroidism: Synthroid Hypertension History of Paroxysmal AFib on Eliquis, not on any antiarrhythmic drugs Date of Service: Nov 17, 2024 Billing Provider: ROCIO COTA MD Common Visit Codes: 60987-CWP/OBS DISCH DAY >30min ROCIO COTA MD Nov 17, 2024 12:57
[2024-11-17 16:16] VITALS: BP 126/76; PULSE 53; RESP 17; TEMP 98; O2SAT 97
== END 2024-11-17 16:19 | disposition home or self-care (01) | DRG 310 ==
LOC: ER 01:15 → OVERFLOW 04:32 → TELE-EAST 16:57
PROVIDERS: ADMIT Family Medicine; ATTEND Family Medicine
DX: I48.0 Paroxysmal atrial fibrillation (principal); E11.9 Type 2 diabetes mellitus without complications; E03.9 Hypothyroidism, unspecified; I10 Essential (primary) hypertension; E78.00 Pure hypercholesterolemia, unspecified; Z85.42 Personal history of malignant neoplasm of other parts of uterus; Z79.899 Other long term (current) drug therapy; Z79.84 Long term (current) use of oral hypoglycemic drugs; Z79.01 Long term (current) use of anticoagulants; Z83.3 Family history of diabetes mellitus; Z82.49 Family history of ischemic heart disease and other diseases of the circulatory system
CPT/HCPCS: 36415; 71045; 80048; 80061; 81001; 82962; 84443; 84484; 85025; 85379; 93005; 93306; 96365; 96375; 99291; G0378; J1815